=== PATIENT | male | born 1980 | race Caucasian/White ===

== ENCOUNTER 2024-12-18 11:26 | Emergency (ER) | payer BC, SELFPAY ==
[2024-12-18 11:27] VITALS: BP 150/99; PULSE 104; RESP 22; TEMP 36.9; O2SAT 94
[2024-12-18 11:28] VITALS: BMI 36.3
--- NOTE | 2024-12-18 11:44 | EKG12_ITS ---
Test Reason : SOB Blood Pressure : */* mmHG Vent. Rate : 102 BPM Atrial Rate : 102 BPM P-R Int : 130 ms QRS Dur : 78 ms QT Int : 338 ms P-R-T Axes : 63 62 53 degrees QTcB Int : 440 ms Sinus tachycardia Otherwise normal ECG Confirmed by NU ABRAMS, NOHEMI ([id number]), electronic news gathering editor ANGELINA TOLENTINO ([id number]) on 12/21/2024 9:55:57 AM Referred By: RAUL/PABLO Confirmed By: NOHEMI JUDGE MD
[2024-12-18 11:46] VITALS: O2SAT 99
[2024-12-18 11:47] VITALS: PULSE 92; RESP 16
[2024-12-18] MEDS: Ipratropium/Albuterol Sulfate 3 ML AMPUL.NEB 6 ML INHALATION (11:47)
--- NOTE | 2024-12-18 12:10 | RAD_ITS ---
PROCEDURE: CHEST PA AND LATERAL (RADCXR), 12/18/2024 REASON FOR EXAM: SOB TECHNIQUE: PA and lateral views of the chest were obtained. COMPARISON: None FINDINGS: Heart: Unremarkable. Mediastinum: Suspect chronic granulomatous disease with calcified RIGHT hilar nodes. Lungs/pleura: No focal consolidation. No pleural effusion or visible pneumothorax. Bones: Minimal radiographically evident spondylosis. Lines and support devices: None. Other: None. RAD/Chest PA and Lateral IMPRESSION: 1. No visible acute cardiopulmonary findings 2. Additional description as above. Reading Location: [id number]
--- NOTE | 2024-12-18 12:18 | EX.ED.DYSGE1 ---
HPI History of Present Illness Chief Complaint: Shortness of Breath Narrative Narrative: Patient is a 44-year-old male who is presenting to the ER today with chief complaint of shortness of breath, bronchitis, wheezing, difficulty breathing. Patient is a longtime smoker for 20+ years. Patient now vapes. 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 Patient states that he has pneumonia 3-4 times a year. is at bedside. Patient has no recent traveling. No recent antibiotics. Last time patient was on steroids was before July 2024. Patient has no abdominal pain nausea vomiting. Patient has sinus congestion. Patient did take DayQuil this morning. [facility] Medical History (Updated 12/18/24 @ 11:45 by Malini Fairbanks) Depression GERD (gastroesophageal reflux disease) Home Medications ?Medication ?Instructions ?Recorded ?Last Taken ?Type benzonatate 100 mg capsule 200 mg (2 x 100 mg) PO TID PRN PRN 12/18/24 Unknown Rx Cough #20 CAPSULES idiximyualbpibd-cdzooeeitdqrrjk-YS 10 ml PO Q6H PRN cold symptoms 12/18/24 Unknown Rx 2 mg-30 mg-10 mg/5 mL oral syrup #200 mL (Bromfed DM) prednisone 20 mg tablet 40 mg (2 x 20 mg) PO DAILY 3 days 12/18/24 Unknown Rx #6 TABLETS Allergy/AdvReac Type Severity Reaction Status Date / Time No Known Allergies Allergy Verified 12/18/24 11:28 Social History Smoking Status: Current every day smoker tobacco type: e-cigarettes ROS ROS ED ROS Narrative REVIEW OF SYSTEMS: Unless otherwise stated in this report the patient's positive and negative responses for review of systems for constitutional, eyes, ENT, cardiovascular, respiratory, gastrointestinal, neurological, , musculoskeletal, and integument systems and related systems to the presenting problem are either stated in the history of present illness or were not pertinent or were negative for the symptoms and/or complaints related to the presenting medical problem. EXAM Physical Exam Narrative Exam Narrative: Vital signs reviewed and patient is not hypoxic. General: The patient appears well and in no apparent distress. Patient is resting comfortably on cart. Not toxic, lethargic, or listless. Skin: Warm, dry, no pallor noted. There is no rash noted. Head: Normocephalic, atraumatic, no bilateral frontal tenderness to palpation. Mild bilateral maxillary tenderness to palpation.. Drainage noted to posterior pharynx. Mild cobblestoning. No unilateral swelling, no other intraoral pathology. Eye: Normal conjunctiva, no drainage, EOMI. PERRL. Ears, Nose, Mouth, and Throat: oral mucosa is moist. Nares patent. Mouth without vesicles. Cardiovascular: Regular Rate and Rhythm, no murmurs, gallops, or rubs Respiratory: Patient is in no distress, no accessory muscle use, lungs has diffuse bilateral wheezing, prolonged expiration, no rhonchi rales crackles heard. Equal breath sounds. Back: non-tender, no CVA tenderness bilaterally to percussion. NO CTLS midline or paraspinal tenderness to palpation. GI: Soft, no tenderness to palpation, no masses appreciated. No rebound, guarding, or rigidity noted. Musculoskeletal: The patient has full range of motion of all extremities and joints with no difficulty. Patient has no motor, no sensory deficits. No peripheral edema. Neurological: A&O x4, normal speech, no focal neurological deficits. Psychiatric: Cooperative Const Vital Signs: 12/18/24 11:27 12/18/24 11:46 12/18/24 11:47 Temperature 98.4 F Temperature Source Oral Pulse Rate 104 H 92 Respiratory Rate 22 H 16 Respiratory Effort Normal Non-Labored Respiratory Depth Normal Respiratory Pattern Normal Blood Pressure 150/99 H Blood Pressure Mean 116 Pulse Ox 94 Oxygen Delivery Method Room Air MDM MDM MDM Narrative Medical decision making narrative: Patient seen and examined: Patient of x-ray, 2 DuoNebs, Differential diagnosis includes but is not limited to: Bronchitis, sinusitis, COPD exacerbation, pneumonia, pleurisy, pneumothorax Relevant laboratory interpretation: None indicated Radiological studies: Chest x-ray shows no acute cardiopulmonary disease, no infiltrate, no effusion. X-ray interpreted by me. Reevaluation: Patient feels much better after 2 DuoNeb's. Patient be sent home with Bromfed. Patient has albuterol Hailer to use at home. Patient be given 3 days of steroids. Education on emphysema, COPD, following up and reestablishing new PCP, insurance sales specialist discussed Social barriers to healthcare: There are no food insecurities, there is no issue with transportation, there are no insurance barriers Disposition: Patient feels better after breathing treatments. Patient will be discharged with Bromfed, patient has an albuterol inhaler, patient will also be given prednisone. Radiography Chest X-Ray - ED: Read by ED Physician (Chest x-ray shows no acute cardiopulmonary disease, no filtrate, no effusion.) Diagnostic Testing: Clinical Impression(s) from Imaging Studies Chest X-Ray 12/18/24 12:10 IMPRESSION: 1. No visible acute cardiopulmonary findings 2. Additional description as above. Reading Location: [facility] EKG Initial EKG: Attestation: I personally reviewed and interpreted this EKG as follows: (EKG interpretation. Sinus tachycardia 102. Normal axis deviation. No acute ST elevation, no acute ectopy. QTc of 440.) Discharge Plan Triage Chief Complaint: Shortness of Breath Other Complaint: Asthma ED Provider: Darshan Henderson Dx/Rx/DC Orders Instructions: ED Bronchitis with Wheezing (Adult), ED Bronchitis, No Antibiotic (Adult) Prescriptions: New prednisone 20 mg tablet 40 mg PO DAILY 3 Days Qty: 6 0RF benzonatate 100 mg capsule 200 mg PO TID PRN PRN (Reason: Cough) Qty: 20 0RF otbocrfstqznhgr-niheepuxu-OM [Bromfed DM] 2-30-10 mg/5 mL syrup 10 ml PO Q6H PRN (Reason: cold symptoms) Qty: 200 0RF Stand Alone Forms: ED Work / School Excuse Primary Care Provider: Emily Salazar Referrals: Toan Lopez DO [Med Staff - Active Staff] - Carl Moya MD [Non-Staff] - Activity Restrictions/Additional Instructions: Use jgbr-jwe-dxyvoqy DayQuil, NyQuil, Flonase daily. Use Mucinex DM as needed as well. Alternate Tylenol and either Motrin, Advil, or ibuprofen every 4 hours to help with fever, chills, myalgia, arthralgia or pain. Use zinc, vitamin D3, vitamin C to help build immune system and help fight infection as well. Increase fluids, Gatorade, Print Language: Indian Disposition Disposition: Home Health Service
[2024-12-18 13:26] VITALS: BP 131/80; PULSE 95; RESP 20; TEMP 36.6; O2SAT 99
== END 2024-12-18 13:27 | disposition home or self-care (01) ==
PROVIDERS: Emergency Provider Emergency Medicine; PCP Nurse Practitioner Family; Visit Provider Emergency Medicine
DX: J45.909 Unspecified asthma, uncomplicated (principal); F17.290 Nicotine dependence, other tobacco product, uncomplicated; K21.9 Gastro-esophageal reflux disease without esophagitis
CPT/HCPCS: 71046; 93005; 94640; 99282